=== PATIENT | male | born 1970 | race Caucasian/White ===

== ENCOUNTER 2020-09-06 17:58 | Emergency (ER) | payer OTHER ==
[~2020-09-06 17:58] MED LIST: BACTRIM 400-801 EACH PO; FLONASE 0.05% N16 GM; PROZAC20 MG PO; REMERON15 MG PO; ZANTAC150 MG PO
[2020-09-06] MEDS ORDERED: ERYTHROMYCIN OP1 GM EYELF (18:49)
[2020-09-06] MEDS ORDERED: CLEOCIN HCL300 MG PO (18:49)
== END 2020-09-06 19:08 | disposition home or self-care (01) ==
LOC: ER1 17:58
DX: H00.014 Hordeolum externum left upper eyelid (principal); F17.210 Nicotine dependence, cigarettes, uncomplicated
CPT/HCPCS: 99283